=== PATIENT | male | born 1950 | race Caucasian/White ===

== ENCOUNTER 2025-02-26 01:21 | Emergency (ER) | payer MEDICARE, SELFPAY ==
[2025-02-26 01:41] VITALS: BP 136/80
[2025-02-26 02:02] VITALS: BP 136/76
--- NOTE | 2025-02-26 02:19 | ED.GENMED ---
History of Present Illness
General
Chief Complaint: Chest Pain
Source: patient and spouse
Exam Limitations: none
Time Seen by Provider: 02/26/25 01:46
Nursing documentation reviewed up to this point in time: agreed with
History of Present Illness
History of Present Illness:
74-year-old male with a past medical history of CAD, hypertension, prediabetic who presents to the emergency department accompanied by his for evaluation after an episode of chest pain. Patient reports onset of symptoms just prior to arrival
woke him up from sleep. He says symptoms lasted for about 30 minutes and have since resolved. He describes a vague pressure sensation across the chest associated with nausea and some sweatiness. Denies any associated shortness of breath. Denies
being dizzy. He denies any other acute complaints. He cannot recall similar symptoms in the past. He does have a distant history of CAD status post angioplasty in 1994 he says. He follows with Dr. Jaime for cardiology. Of note he does admit
to drinking some scotch before bed.
Review of Systems
Review of Systems
All Other Systems: ROS reviewed and negative except as documented in HPI and ROS
Respiratory: Denies trouble breathing
Cardiac: Reports chest pain and diaphoresis
ABD/GI: Reports nausea; Denies abdominal pain or vomiting
: Denies flank pain
Musculoskeletal: Denies neck pain or back pain
Neurological: Denies dizzy or headache
Phy Exam
Physical Exam
Physical Exam:
General: Awake, alert, oriented x3; no acute distress
Head: Normocephalic, atraumatic
Eyes: Conjunctiva normal, sclera anicteric
Throat: Airway intact, handling secretions
Neck: Trachea midline, no JVD
Lungs: Clear to auscultation bilaterally, no wheezing, rales, rhonchi
Heart: Regular rate and rhythm, no murmurs, gallops, or rubs appreciated
Abd: Soft, non distended, nontender
Neuro: Grossly intact
Skin: Warm and dry
Extremities: No edema in extremities, warm and well-perfused
Scores
Heart Failure Risk
Heart Failure Risk Score: Not Applicable
Heart Score for Chest Pain Patients
STEMI patient?: No
History: Slightly or Non-Suspicious
ECG: Nonspecific Repolarization
Age: >/= 65 years
Risk Factors: >/= 3 Risk Factors or History of CAD
Troponin: </= Normal Limit
Heart Score for Chest Pain Patients: 5
Heart Score Risk: 20.3% MACE over next 6 weeks
Withdrawal Assessment of Alcohol
Withdrawal Assessment Completed?: Not applicable
Course
Orders/Labs/Results
Orders:
Orders
02/26/25 01:26
EKG [Electrocardiogram (*1)] Urgent
Reason for Study: Chest Pain
02/26/25 01:27
EKG- Treatment ONCE
02/26/25 01:46
CR Chest - 2 Views Urgent
Comment:
Reason For Exam: chest pain
02/26/25 02:16
Complete Blood Count/With Diff Urgent
Comprehensive Metabolic Panel Urgent
Lipase Urgent
Troponin I Urgent
02/26/25 05:15
Troponin I Urgent
Abnormal Lab Results
02/26/25
02:16
RBC 4.68 L 10^6/uL
(4.70-6.10)
MPV 10.5 H fL
(7.4-10.4)
Absolute Monos (auto) 0.7 H 10^3/uL
(0.1-0.6)
Monocytes % 9.4 H %
(1.7-9.3)
BUN 22 H mg/dl
(9-20)
Creatinine 1.4 H mg/dL
(0.7-1.3)
Glucose 154 H mg/dl
(70-99)
02/26/25 02:16
02/26/25 02:16
Vital Signs
Initial and Last Documented VS:
Initial Vital Signs
Temp Pulse Resp BP Pulse Ox
36.4 C 79 18 136/80 96
02/26/25 01:41 02/26/25 01:41 02/26/25 01:41 02/26/25 01:41 02/26/25 01:41
Last Documented Vital Signs
Temp Pulse Resp BP Pulse Ox
36.4 C 64 17 105/58 95
02/26/25 01:41 02/26/25 05:30 02/26/25 05:30 02/26/25 05:00 02/26/25 05:30
MDM/Problems Addressed
Differential Diagnosis Includes:
ACS, GERD, anxiety; nothing by history or exam to suggest PE, aortic dissection in my judgment no further workup for these diagnosis is indicated
MDM/Problems Addressed:
74-year-old male presents to the ER for evaluation after an episode of chest pain that lasted for 30 minutes and has completely resolved. He did have some associated nausea and sweatiness. Vitals and exam are as above. His EKG tonight shows sinus
rhythm with right bundle branch block, no STEMI. Plan to place an IV check labs including a CBC and a CMP. Will need to check serial troponins. Will check a chest x-ray. Monitor for recurrence, reassess after the above.
Labs reviewed: CBC unremarkable, CMP shows creatinine 1.4�unknown baseline�will need outpatient follow-up. Initial troponin negative�will repeat. Chest x-ray reviewed by me shows no acute disease. Clinical reassessment patient no recurrence of
chest pain, vital signs stable, resting comfortably and well-appearing. Continue to monitor.
Repeat troponin negative, patient has remained chest pain-free throughout the entirety of his ED observation. Overall suspect symptoms were likely related to GERD�admits to eating cookies before bed and also had scotch last night. Given his
cardiac history however will have him follow-up with his table cover folder after this episode for reassessment. He is stable for discharge at this point in time spoke about follow-up plan and return precautions in detail and all questions answered.
Chronic conditions affecting care:
CAD
*Radiology
Radiology exam reviewed: preliminary read by ED provider
*Pulse Oximetry
SaO2: 98
Oxygen Mode of Delivery: Room air
Patient hypoxic: no (98%)
*EKG
Interpreted by ED Provider?: Yes
Heart Rate: 76
Rate: normal
Rhythm: sinus
[place]: normal axis
Interval: normal interval
QRS Pattern: right bundle branch block
Ischemia: non-specific ST changes
*Critical Care Note
Total Time (30-74mins, 75-104mins- exclusive of procedures): Not Applicable
Data Reviewed
Source: patient and spouse
ED Attending Note
-
Portions of this chart may have been created with voice recognition software.� Occasional wrong word or��sound alike� substitutions may have occurred due to the inherent limitations of voice recognition software.
Discharge Plan
Departure
Patient Disposition: Home (Routine Discharge)
Date of Disposition: 02/26/25
Time of Disposition: 06:20
Patient with high blood pressure during this ER visit?: No
Discharge Problem:
Chest pain
Instructions: Chest Pain NON-[facility] [place] Follow Up
Referrals:
Akbar Peña DO [Family Provider, Family Practice]
Nabeel aJime DO [Non-Admitting Privileges, Internal Medicine] - Call in 1-3 days for appt
Activity Restrictions/Additional Instructions:
Thank you for visiting the Emergency Department at [facility].
1. Please schedule a follow up appointment as directed. Call first thing tomorrow morning to make an appointment.
2. If indicated, please take your medications as instructed and indicated on discharge paperwork.
3. If any of your symptoms do not improve, or persist, or become more severe within 6-12 hours, please return to the emergency department for further care.
4. Please return to the emergency department if you develop a headache, neck pain/stiffness, fever greater than 100.4F, chest pain, shortness of breath, persistent nausea, vomiting, slurred speech, difficulty walking, numbness/tingling, weakness,
signs of infection or any other symptoms that are worrisome to you.
Please call [phone] if you have any questions.
Interventions
Interventions:
*Risk Screen - Suicide Last Done: 02/26/25 01:28
*General Assessment Last Done: 02/26/25 02:19
*Neglect/Abuse Screening Last Done: 02/26/25 02:19
*ED COVID-19 Vaccine History Last Done: 02/26/25 02:19
*ED Influenza Vaccine History Last Done: 02/26/25 02:19
[facility] Fall Risk Assessment Tool Last Done: 02/26/25 02:20
ED- Cardiac Assessment Last Done: 02/26/25 02:04
Discharge Date and Time
Print Language: CONGOLESE
[2025-02-26 02:20] VITALS: BMI 25.8
[2025-02-26 02:50] LABS: Hematocrit 42.1 % (39.0-52.0); Hemoglobin 14.2 g/dL (13.0-18.0); Mean Corp Hgb Conc. 33.7 g/dL (33.0-37.0); Mean Corpuscular Volume 90.0 fL (80.0-94.0); Nucleated Red Blood Cells % 0 % (-); Platelet Count 140 10^3/uL (130-400); Red Cell Dist. Width 12.8 % (11.5-14.5)
[2025-02-26 02:58] LABS: ALT (SGPT) 30 U/L (0-50); AST (SGOT) 33 U/L (17-59); Albumin 4.3 g/dl (3.5-5.0); Alkaline Phosphatase 91 U/L (38-126); Blood Urea Nitrogen 22 mg/dl (9-20); Calcium 9.6 mg/dl (8.4-10.2); Carbon Dioxide 29 mmol/L (22-30); Chloride 104 mmol/L (98-107); Estimated Creatinine Clearance 41 ml/min; Glucose 154 mg/dl (70-99); Lipase 180 U/L (23-300); Potassium 4.2 mmol/L (3.5-5.1); Sodium 140 mmol/L (135-145); Total Protein 6.6 g/dl (6.3-8.2); eGFR 52.09
[2025-02-26 03:00] VITALS: BP 108/59
[2025-02-26 03:13] LABS: Troponin I 0.013 ng/ml
[2025-02-26 04:00] VITALS: BP 106/63
[2025-02-26 05:00] VITALS: BP 105/58
[2025-02-26 06:16] LABS: Troponin I 0.023 ng/ml
== END 2025-02-26 06:45 | disposition home or self-care (01) ==
LOC: EMR 01:21
PROVIDERS: EMERGENCY PHYSICIAN Emergency Medicine; FAMILY PHYSICIAN Family Medicine
DX: R07.9 Chest pain, unspecified (principal); I10 Essential (primary) hypertension; I25.10 Atherosclerotic heart disease of native coronary artery without angina pectoris; Z98.61 Coronary angioplasty status; I45.10 Unspecified right bundle-branch block
CPT/HCPCS: 99285; 71046; 80053; 83690; 84484; 85025; 93005